=== PATIENT | male | born 1975 | race Caucasian/White ===

== ENCOUNTER 2019-05-31 04:27 | Emergency (ER) | payer MEDICARE ==
[~2019-05-31] VITALS: Ht 177.8 cm; Wt 59.1 kg
[2019-05-31 04:31] VITALS: BP 98/54
[2019-05-31] MEDS ORDERED: LIDOcaine 1% W/epiNEPHrine 1:100,000 20ml vial IJ ONE (05:00)
[2019-05-31] MEDS ORDERED: ketorolac trometh inj. 60 MG/2 ML VIAL IM ONE (05:05)
[2019-05-31] MEDS ORDERED: SULF1TAB49 PO (05:08)
== END 2019-05-31 05:50 | disposition home or self-care (01) ==
LOC: ER 04:28
DX: L02.11 Cutaneous abscess of neck (principal); F17.200 Nicotine dependence, unspecified, uncomplicated
CPT/HCPCS: 10060; 96372; 99283; J1885

== ENCOUNTER 2020-10-24 06:07 | Emergency (ER) | payer OTHER ==
[~2020-10-24] VITALS: Ht 177.8 cm; Wt 61.4 kg
[2020-10-24] MEDS ORDERED: cephalexin 500mg capsule PO ONE (06:15)
[2020-10-24] MEDS ORDERED: sulfamethoxazole/trimethoprim DS (800/160mg) tablet PO ONE (06:15)
[2020-10-24] MEDS ORDERED: CEPH-585 PO (06:17)
[2020-10-24] MEDS ORDERED: SULF1TAB49 PO (06:17)
[2020-10-24 06:32] VITALS: BP 93/58
== END 2020-10-24 06:34 | disposition home or self-care (01) ==
LOC: ER 06:08
DX: L02.11 Cutaneous abscess of neck (principal); F17.200 Nicotine dependence, unspecified, uncomplicated; F12.90 Cannabis use, unspecified, uncomplicated; Z98.890 Other specified postprocedural states; Z79.899 Other long term (current) drug therapy
CPT/HCPCS: 99283